=== PATIENT | male | born 1980 | race Caucasian/White ===

== ENCOUNTER 2022-05-14 12:53 | Emergency (ER) | payer BC, SELFPAY ==
[2022-05-14] MEDS ORDERED: Lidocaine 1% (PF) 30 ML VIAL ONE (14:00)
[2022-05-14] MEDS ORDERED: Bacitracin 1 PK ONE (14:36)
== END 2022-05-14 15:01 | disposition home or self-care (01) ==
LOC: MADERS 12:53
DX: S61.211A Laceration without foreign body of left index finger without damage to nail, initial encounter (principal); W26.8XXA Contact with other sharp object(s), not elsewhere classified, initial encounter
CPT/HCPCS: 12002; J2001

== ENCOUNTER 2025-02-23 12:54 | Emergency (ER) | payer BC ==
[~2025-02-23 12:54] MED LIST: Iopamidol 370 76% 100 ML VIAL ONE
[2025-02-23] MEDS ORDERED: Ondansetron PF 4 MG/2 ML Vial ONE (13:04)
[2025-02-23] MEDS ORDERED: Ketorolac Tromethamine 30 MG (1 mL) VIAL ONE (13:18)
[2025-02-23 13:25] LABS: #Basophils 0.1 thou/uL (0.0-0.2); #Eosinophils 0.0 thou/uL (0.0-0.7); #Lymphocytes 1.1 thou/uL (1.20-3.40); #Monocytes 0.3 thou/uL (0.11-0.59); #Neutrophils 9.1 thou/uL (1.40-6.50); %Basophils 0.6 % (0.0-1.0); %Eosinophils 0.5 % (0.0-10.0); %Lymphocytes 10.3 % (21.0-51.0); %Monocytes 2.4 % (0.0-10.0); %Neutrophils 86.3 % (42.0-75.0); Hematocrit 45.5 % (42.0-52.0); Hemoglobin 13.6 g/dL (14.0-18.0); Mean Corpuscular Hemoglobin 22.2 pg (27.0-31.0); Mean Corpuscular Volume 74.1 fl (78.0-98.0); Platelet Count 733 10x3/uL (130-400); Red Blood Cell (RBC) Count 6.14 mill/uL (4.70-6.10); White Blood Cell (WBC) Count 10.5 10x3/uL (4.8-10.8)
[2025-02-23 13:35] LABS: Glucose, Urine (Dipstick) Negative (Negative); Leukocyte Negative (Negative); Protein, Urine (Dipstick) 30 mg/dL (Neg-Trace); Specific Gravity, Urine 1.020 (1.005-1.030)
[2025-02-23 13:35] LABS: ALT (SGPT) 11 U/L (Less than 45); AST (SGOT) 27 U/L (11-34); Albumin 3.4 g/dL (3.1-4.5); Alkaline Phosphatase 93 U/L (40-110); Anion Gap 17 mmol/L (10-20); BUN (Urea Nitrogen) 14 mg/dL (8.9-20.6); Bilirubin, Total 1.1 mg/dL (0.3-1.2); Calc. Creatinine Clearance 0 mL/min (70-130); Calcium 9.4 mg/dL (7.8-10.44); Carbon Dioxide 24 mmol/L (22-29); Chloride 101 mmol/L (98-107); Globulin 3.9 g/dL (2.4-3.5); Glucose 128 mg/dL (70-105); Potassium 4.2 mmol/L (3.5-5.1); Sodium 138 mmol/L (136-145)
[2025-02-23 13:37] LABS: Microcytosis SLIGHT = 6-15 cells (100X) (0-5/hpf)
[2025-02-23 13:45] LABS: Bacteria/HPF Rare-Few HPF (None Seen); CAUTI Indications for Culture Pelvic or flank pain; Mucous/LPF 4+ LPF (<2+); RBC/HPF None Seen HPF (0-3); WBC/HPF 0-3 HPF (0-3)
[2025-02-23 13:46] LABS: Urine Culture Reflex No No
== END 2025-02-23 18:16 | disposition short-term general hospital (02) ==
LOC: MADERS 12:54
DX: K52.9 Noninfective gastroenteritis and colitis, unspecified (principal); K65.1 Peritoneal abscess; K63.1 Perforation of intestine (nontraumatic)
CPT/HCPCS: 74177; 80053; 81001; 85025; 96361; 96365; 96375; 96376; J1885; J2270; J2405; J2543; J7030; Q9967